=== PATIENT | female | born 1975 | race African-American/Black ===

== ENCOUNTER → 2016-11-13 | Emergency (ER) | payer MEDICAID ==
[~2016-11-13] VITALS: Ht 162.6 cm; Wt 61.2 kg
[~2016-11-13] MED LIST: AZITHROMYCIN250 MG ORAL; CIPRO500 MG PO; CYCLOBENZAPRINE10 MG ORAL; KEFLEX500 MG ORAL; NKM; NORCO 5-325 TA1 EACH ORAL; ONDANSETRON ODT4 MG ORAL; TYLENOL325 MG ORAL; VICODIN 5-5001 EACH PO; ZITHROMAX250 MG ORAL
[2016-11-13 14:56] VITALS: BP 117/76
[2016-11-13 14:58] VITALS: BP 117/76
--- NOTE | 2016-11-13 15:06 | Emergency Room Report ---
History of Present Illness General Chief Complaint: Sore Throat Source: Patient, Medical Record Present Illness HPI Patient presents with complaints of sore throat Reports that she began having sore throat 3 days ago Mainly on the right side Denies any headache however she feels that with swallowing The pain is 6/10 She also felt a small bump in that area Denies any chest pain or short of breath denies any back or flank pain Allergies: Coded Allergies: IBUPROFEN (Verified Allergy, 06/29/12) PENICILLINS (Verified Allergy, 06/28/12) Patient History Past Medical History: see triage record Pertinent Family History: none Last Menstrual Period: 11/04/2016 : 3 Para: 3 Reviewed Nursing Documentation: PMH: Agreed, PSxH: Agreed Nursing Documentation-PMH Hx Cardiac Problems: No Hx Cancer: No Hx Neurological Problems: No Review of Systems All Other Systems: negative except mentioned in HPI Physical Exam Vital Signs Date Time Temp Pulse Resp B/P Pulse Ox O2 Delivery O2 Flow Rate FiO2 11/13/16 13:51 99.0 90 16 117/76 100 Room Air Sp02 EP Interpretation: reviewed, normal General Appearance: well appearing, no apparent distress Head: normocephalic, atraumatic Eyes: bilateral eye EOMI, bilateral eye PERRL ENT: hearing grossly normal, TMs + canals normal, uvula midline, pharyngeal erythema Neck: full range of motion, supple, no meningismus, no bony tend Respiratory: lungs clear, normal breath sounds, no rhonchi, no respiratory distress, no retraction, no accessory muscle use Cardiovascular #1: normal peripheral pulses, regular rate, rhythm, no edema, no gallop, no JVD, no murmur Neurologic: oriented x3, responsive, rn plastics III-XII nml as tested, motor strength/ tone normal, sensory intact Psychiatric: mood/affect normal Skin: normal color, no rash, warm/dry, palpation normal Lymphatic: other - Right well circumscribed palpable submental lymph node Medical Decision Making Diagnostic Impression: Primary Impression: pharyngitis Additional Impression: Drug-seeking behavior ER Course Patient shows signs of simple pharyngitis no signs of any para- tonsillar abscess Patient reports taking Tylenol which is no longer helping and is allergic to Motrin Patient reviewed on [facility] prescription on September 20 October 12, and October 19 Patient's presentation and behavior is concerning for opiate seeking behavior I did recommend she followup with her primary physician for continued outpatient pain control and did discuss states pain medicine prescribing metrics at [place] Last Vital Signs Date Time Temp Pulse Resp B/P Pulse Ox O2 Delivery O2 Flow Rate FiO2 11/13/16 14:58 99.0 90 16 117/76 100 Room Air Status: unchanged Disposition: HOME, SELF-CARE Condition: Stable Scripts Azithromycin* (ZITHROMAX*) 250 Mg Tablet 250 MG ORAL DAILY, #6 TAB 0 Refills Take two tablets by mouth today, then take one tablet by mouth daily for four days Prov: PJ BURNS D.O. 11/13/16 Patient Instructions: Pharyngitis Additional Instructions: Patient is provided with the discharge instructions notified to follow up with primary doctor in the next 2-3 days otherwise return to the er with any worsening symptoms. Please note that this report is being documented using [employer] technology. This can lead to erroneous entry secondary to incorrect interpretation by the dictating instrument. PJ BURNS D.O. Nov 13, 2016 15:06
== END | disposition home or self-care (01) ==
LOC: EMR 15:04
DX: J02.9 Acute pharyngitis, unspecified (principal); Z76.5 Malingerer [conscious simulation]; Z88.6 Allergy status to analgesic agent; Z88.0 Allergy status to penicillin
CPT/HCPCS: 99283